=== PATIENT | female | born 1995 | race Caucasian/White ===

== ENCOUNTER 2017-04-21 15:14 | Emergency (ER) | payer SELFPAY ==
[2017-04-21 15:33] VITALS: BP 137/53
[2017-04-21] MEDS ORDERED: Acetaminophen TAB* 325 MG PO ONE (16:01)
--- NOTE | 2017-04-21 16:06 | UC ---
Throat Pain/Nasal Sal HPI - HPI Summary HPI Summary: pt presents with sudden onset of sore throat and fever X 1 day - History of Current Complaint Chief Complaint: UCRespiratory Stated Complaint: THROAT Time Seen by Provider: 04/21/17 15:53 Hx Obtained From: Patient Hx Last Menstrual Period: spotting last week ?: No Onset/Duration: Sudden Onset, Lasting Days - 1 Severity: Moderate Associated Signs & Symptoms: Positive: Dysphagia, Fever - Allergies/Home Medications Allergies/Adverse Reactions: Allergies Allergy/AdvReac Type Severity Reaction Status Date / Time unknown cephalosporin Allergy Unknown Uncoded 04/21/17 15:34 Reaction Details Home Medications: Home Medications Ibuprofen TAB* [Motrin TAB* 800 MG] 800 mg PO ONCE PRN 04/21/17 [History Confirmed 04/21/17] PMH/Surg Hx/FS Hx/Imm Hx Previously Healthy: Yes - Surgical History Surgical History: None - Family History Known Family History: Positive: Other - Mom has HX ovarian cysts - Social History Alcohol Use: None Substance Use Type: None Smoking Status (MU): Former Smoker Type: Cigarettes Amount Used/How Often: occasional use Household Exposure Type: Cigarettes Review of Systems Constitutional: Fever, Chills Skin: Negative Eyes: Negative ENT: Sore Throat Respiratory: Negative Cardiovascular: Negative Gastrointestinal: Negative Genitourinary: Negative Motor: Negative Neurovascular: Negative Musculoskeletal: Negative Neurological: Headache Psychological: Negative All Other Systems Reviewed And Are Negative: Yes Physical Exam Triage Information Reviewed: Yes Appearance: Ill-Appearing Vital Signs: Initial Vital Signs Temp 102.8 F 04/21/17 15:30 Pulse 122 04/21/17 15:30 Resp 18 04/21/17 15:30 BP 137/53 04/21/17 15:30 Vital Signs Reviewed: Yes Eye Exam: Normal ENT Exam: Other ENT: Positive: Tonsillar swelling, Tonsillar exudate Neck: Positive: Tenderness @ - submandibular Respiratory Exam: Normal Cardiovascular Exam: Normal Musculoskeletal Exam: Normal Neurological Exam: Normal Psychological Exam: Normal Skin Exam: Normal Throat Pain/Nasal Course/Dx - Differential Dx/Diagnosis Differential Diagnosis/HQI/PQRI: Tonsillitis Provider Diagnoses: tonsillitis Discharge - Discharge Plan Condition: Stable Disposition: HOME Prescriptions: Azithromycin [Azithromycin 500 MG TAB] 500 mg PO DAILY #5 tab Patient Education Materials: Tonsillitis (ED) Referrals: No Primary Care Phys,NOPCP [Primary Care Provider] - [facility] [place] [facility] REFERRAL [Outside]
== END 2017-04-21 16:17 | disposition home or self-care (01) ==
LOC: UCCORT 15:14
DX: J03.90 Acute tonsillitis, unspecified (principal); Z88.1 Allergy status to other antibiotic agents; Z87.891 Personal history of nicotine dependence
CPT/HCPCS: 99212; A9270-GY; G0463

== ENCOUNTER 2017-06-28 12:10 | Emergency (ER) | payer MEDICAID ==
[2017-06-28 12:23] VITALS: BP 124/67
--- NOTE | 2017-06-28 12:27 | UC ---
Throat Pain/Nasal Sal HPI - HPI Summary HPI Summary: Pt is here for strep testing because she works in a [employer] & it is going around; intermittent sore throat x1 day. Also c/o left whitfield pain since yesterday that is worse w/ standing & walking. Pt has been working more hours recently. She had strep about 4 mo ago and starting to feel like that,. no fever or cough [ End ] - History of Current Complaint Chief Complaint: UCGeneralIllness Stated Complaint: SORE THROAT, LOWER LEG PAIN Time Seen by Provider: 06/28/17 12:25 Hx Obtained From: Patient Hx Last Menstrual Period: has implanon ?: No - Allergies/Home Medications Allergies/Adverse Reactions: Allergies Allergy/AdvReac Type Severity Reaction Status Date / Time unknown cephalosporin Allergy Unknown Uncoded 06/28/17 12:18 Reaction Details PMH/Surg Hx/FS Hx/Imm Hx Previously Healthy: Yes - Surgical History Surgical History: None - Family History Known Family History: Positive: Other - Mom has HX ovarian cysts - Social History Occupation: Employed Full-time Lives: With Family Alcohol Use: None Substance Use Type: None Smoking Status (MU): Former Smoker Type: Cigarettes Amount Used/How Often: occasional use Household Exposure Type: Cigarettes Review of Systems Constitutional: Negative Skin: Negative Eyes: Negative ENT: Sore Throat Respiratory: Negative Cardiovascular: Negative Gastrointestinal: Negative Genitourinary: Negative Motor: Negative Neurovascular: Negative Musculoskeletal: Arthralgia Neurological: Negative Psychological: Negative All Other Systems Reviewed And Are Negative: Yes Physical Exam Triage Information Reviewed: Yes Appearance: Well-Appearing, No Pain Distress, Well-Nourished Vital Signs: Initial Vital Signs Temp 98.1 F 06/28/17 12:19 Pulse 89 06/28/17 12:19 Resp 16 06/28/17 12:19 BP 124/67 06/28/17 12:19 Pulse Ox 99 06/28/17 12:19 Vital Signs Reviewed: Yes Eye Exam: Normal ENT Exam: Normal ENT: Positive: Pharyngeal erythema, TMs normal. Negative: Tonsillar exudate Dental Exam: Normal Neck exam: Normal Neck: Positive: 1 Respiratory Exam: Normal Cardiovascular Exam: Normal Musculoskeletal Exam: Normal Musculoskeletal: Positive: Strength Intact, ROM Intact, Other: - bilateral anterior whitfield tenderness to palpation and with flexion. no homans. no erythema. no discharge or ecchymosis. no knee or ankle pain Neurological Exam: Normal Psychological Exam: Normal Skin Exam: Normal Throat Pain/Nasal Course/Dx - Course Course Of Treatment: Neg Strep - Differential Dx/Diagnosis Differential Diagnosis/HQI/PQRI: Pharyngitis, Tonsillitis, URI Provider Diagnoses: Whitfield splints / Pharyngitis Discharge - Discharge Plan Condition: Good Disposition: HOME Patient Education Materials: Pharyngitis (ED), Whitfield Splints (ED) Referrals: No Primary Care Phys,NOPCP [Primary Care Provider] - 3 Days
== END 2017-06-28 13:01 | disposition home or self-care (01) ==
LOC: UCCORT 12:10
DX: J02.9 Acute pharyngitis, unspecified (principal); S86.892A Other injury of other muscle(s) and tendon(s) at lower leg level, left leg, initial encounter; S86.891A Other injury of other muscle(s) and tendon(s) at lower leg level, right leg, initial encounter; X58.XXXA Exposure to other specified factors, initial encounter; Y93.9 Activity, unspecified; Y92.9 Unspecified place or not applicable; Z87.891 Personal history of nicotine dependence
CPT/HCPCS: 87651; 99211; G0463

== ENCOUNTER 2017-07-31 11:22 | Emergency (ER) | payer SELFPAY ==
[2017-07-31 11:41] VITALS: BP 112/63
--- NOTE | 2017-07-31 12:13 | RAD ---
Indication: Lateral RIGHT ankle pain with radiation into the top of the foot for one day without known injury. Comparison: No relevant prior exams available on the [facility] PACS for comparison. Technique: AP, lateral, and oblique views of the RIGHT ankle. AP and lateral views of the RIGHT foot. Report: Negative for fracture or malalignment at the ankle or foot. No significant arthropathic change evident. Unremarkable soft tissue contours. IMPRESSION: Negative radiographic exam of the RIGHT ankle and foot.
--- NOTE | 2017-07-31 12:13 | RAD ---
Indication: Lateral RIGHT ankle pain with radiation into the top of the foot for one day without known injury. Comparison: No relevant prior exams available on the [facility] PACS for comparison. Technique: AP, lateral, and oblique views of the RIGHT ankle. AP and lateral views of the RIGHT foot. Report: Negative for fracture or malalignment at the ankle or foot. No significant arthropathic change evident. Unremarkable soft tissue contours. IMPRESSION: Negative radiographic exam of the RIGHT ankle and foot.
--- NOTE | 2017-07-31 12:50 | UC ---
Lower Extremity/Ankle HPI - HPI Summary HPI Summary: LAST NIGHT WHILE WALKING BEGAN TO HAVE SPONTANEOUS RIGHT ANKLE AND RIGHT FOOT PAIN AND SWELLING. NO PREVIOUS INJURY. NO KNOWN TRAUMA. NO RECENT ANTIBIOTICS OR MEDICATION. - History of Current Complaint Chief Complaint: UCLowerExtremity Stated Complaint: RIGHT ANKLE INJURY Time Seen by Provider: 07/31/17 11:26 Hx Obtained From: Patient Hx Last Menstrual Period: "Honestly, I have no idea since I got my bar [Implanon ]." Onset/Duration: Sudden Onset, Lasting Days, Still Present Severity Initially: Severe Severity Currently: Moderate Aggravating Factor(s): Standing, Ambulation Alleviating Factor(s): Rest, Elevation Able to Bear Weight: Yes - Risk Factors Gout Risk Factors: Negative DVT Risk Factors: Negative Septic Arthritis Risk Factor: Negative - Allergies/Home Medications Allergies/Adverse Reactions: Allergies Allergy/AdvReac Type Severity Reaction Status Date / Time Ceftibuten [From Cedax] Allergy Hives Verified 07/31/17 11:36 PMH/Surg Hx/FS Hx/Imm Hx Previously Healthy: Yes - Surgical History Surgical History: None - Family History Known Family History: Positive: Other - Mom has HX ovarian cysts - Social History Occupation: Employed Full-time Lives: With Family Alcohol Use: Occasionally Substance Use Type: None Smoking Status (MU): Never Smoked Tobacco Type: Cigarettes Amount Used/How Often: occasional use Household Exposure Type: Cigarettes - Immunization History Most Recent Influenza Vaccination: Not the 2016/2017 Season Review of Systems Constitutional: Negative Skin: Negative Eyes: Negative ENT: Negative Respiratory: Negative Cardiovascular: Negative Gastrointestinal: Negative Genitourinary: Negative Motor: Negative Neurovascular: Negative Musculoskeletal: Arthralgia - RIGHT ANKLE/FOOT, Edema - RIGHT ANKLE, Myalgia - RIGHT ANKLE/FOOT Neurological: Negative Psychological: Negative Is Patient Immunocompromised?: No All Other Systems Reviewed And Are Negative: Yes Physical Exam Triage Information Reviewed: Yes Appearance: Well-Appearing, Well-Nourished, Pain Distress - MILD Vital Signs: Initial Vital Signs Temp 98.6 F 07/31/17 11:34 Pulse 76 07/31/17 11:34 Resp 16 07/31/17 11:34 BP 112/63 07/31/17 11:34 Pulse Ox 100 07/31/17 11:34 Vital Signs Reviewed: Yes Eye Exam: Normal ENT Exam: Normal ENT: Positive: Normal ENT inspection Dental Exam: Normal Neck exam: Normal Neck: Positive: Supple, Nontender Respiratory Exam: Normal Respiratory: Positive: Chest non-tender, Lungs clear, Normal breath sounds, No respiratory distress Cardiovascular Exam: Normal Cardiovascular: Positive: RRR, No Murmur, Pulses Normal Abdominal Exam: Normal Musculoskeletal Exam: Normal Musculoskeletal: Positive: Strength Intact, ROM Intact Neurological Exam: Normal Psychological Exam: Normal Psychological: Positive: Normal Response To Family Skin Exam: Normal Lower Extremity Course/Dx - Differential Dx/Diagnosis Differential Diagnosis/HQI/PQRI: Fracture (Closed), Sprain, Strain Provider Diagnoses: RIGHT ANKLE/FOOT SPRAIN Discharge - Discharge Plan Condition: Stable Disposition: HOME Patient Education Materials: Ankle Sprain (ED), Foot Sprain (ED) Forms: *Work Release Referrals: [facility] [place] [facility] [Outside] David Cook MD [Medical Doctor] - As Soon As Possible No Primary Care Phys,NOPCP [Primary Care Provider] -
== END 2017-07-31 12:52 | disposition home or self-care (01) ==
LOC: UCCORT 11:22
DX: S93.401A Sprain of unspecified ligament of right ankle, initial encounter (principal); F17.210 Nicotine dependence, cigarettes, uncomplicated; Y92.013 Bedroom of single-family (private) house as the place of occurrence of the external cause; X58.XXXA Exposure to other specified factors, initial encounter
CPT/HCPCS: 99213; G0463

== ENCOUNTER 2017-08-06 13:54 | Emergency (ER) | payer SELFPAY ==
[2017-08-06 14:10] VITALS: BP 118/72
--- NOTE | 2017-08-06 14:16 | UC ---
Lower Extremity/Ankle HPI - HPI Summary HPI Summary: right ankle injury 6 days ago , normal xrays doing better now with less pain requesting a note to return back to work - History of Current Complaint Chief Complaint: UCLowerExtremity Stated Complaint: RIGHT ANKLE RECHECK Time Seen by Provider: 08/06/17 14:05 Hx Obtained From: Patient Hx Last Menstrual Period: n/a Onset/Duration: Gradual Onset, Lasting Days - 6, Resolved Severity Initially: Moderate Severity Currently: Mild Able to Bear Weight: Yes - Allergies/Home Medications Allergies/Adverse Reactions: Allergies Allergy/AdvReac Type Severity Reaction Status Date / Time Ceftibuten [From Cedax] Allergy Hives Verified 08/06/17 14:10 Home Medications: Home Medications Ibuprofen TAB* [Advil TAB*] 400 mg PO Q8H PRN 08/06/17 [History Confirmed ] PMH/Surg Hx/FS Hx/Imm Hx Previously Healthy: Yes - Surgical History Surgical History: None - Family History Known Family History: Positive: Other - Mom has HX ovarian cysts - Social History Alcohol Use: Occasionally Substance Use Type: None Smoking Status (MU): Never Smoked Tobacco Type: Cigarettes Amount Used/How Often: occasional use Household Exposure Type: Cigarettes - Immunization History Most Recent Influenza Vaccination: Not the Season Review of Systems Constitutional: Negative Skin: Negative Eyes: Negative ENT: Negative Respiratory: Negative Cardiovascular: Negative Gastrointestinal: Negative Genitourinary: Negative Motor: Negative Neurovascular: Negative Musculoskeletal: Negative Neurological: Negative Psychological: Negative Is Patient Immunocompromised?: Yes All Other Systems Reviewed And Are Negative: Yes Physical Exam Triage Information Reviewed: Yes Appearance: Well-Appearing, No Pain Distress, Well-Nourished Vital Signs: Initial Vital Signs Temp 98.6 F 08/06/17 14:04 Pulse 77 08/06/17 14:04 Resp 18 08/06/17 14:04 BP 118/72 08/06/17 14:04 Vital Signs Reviewed: Yes Eyes: Positive: Conjunctiva Clear ENT: Positive: Normal ENT inspection, Hearing grossly normal, Pharynx normal Neck exam: Normal Respiratory: Positive: Chest non-tender, Lungs clear, Normal breath sounds Cardiovascular: Positive: RRR, No Murmur, Pulses Normal Musculoskeletal: Positive: Other: - normal right ankle/ foot exam Psychological Exam: Normal Skin Exam: Normal Lower Extremity Course/Dx - Differential Dx/Diagnosis Provider Diagnoses: right ankle sprain Discharge - Discharge Plan Condition: Stable Disposition: HOME Patient Education Materials: Ankle Sprain (ED) Forms: *Work Release Referrals: No Primary Care Phys,NOPCP [Primary Care Provider] - If Needed
== END 2017-08-06 14:36 | disposition home or self-care (01) ==
LOC: UCCORT 13:54
DX: S93.401D Sprain of unspecified ligament of right ankle, subsequent encounter (principal); X58.XXXD Exposure to other specified factors, subsequent encounter; Z88.8 Allergy status to other drugs, medicaments and biological substances; Z77.22 Contact with and (suspected) exposure to environmental tobacco smoke (acute) (chronic)
CPT/HCPCS: 99211; G0463

== ENCOUNTER 2017-10-01 11:14 | Emergency (ER) | payer OTHER ==
[2017-10-01 13:53] VITALS: BP 133/70
--- NOTE | 2017-10-01 13:56 | UC ---
Headache HPI - HPI Summary HPI Summary: 22 y/o female presents to the urgent care c/o headache on and off for the past 2 weeks. Pt reports PHILLIPS is temporal and b/l associated with mild neck pain. Pt also states she wear glasses and she feels she is restraining her vision lately. PHILLIPS is now 7/10, constant, throbbing. Pt has an appt wit her PCP tomorrow at 1540. Pt denies fever, SOB, chest pain, nasal congestion, N/V/D, dizziness, ear pain, abdominal pain. Pt is up to date with all her vaccines. She request a note for work - History Of Current Complaint Chief Complaint: UCHeadache Stated Complaint: MIGRAINE Time Seen by Provider: 10/01/17 13:54 Hx Obtained From: Patient Hx Last Menstrual Period: 03/2017 ?: No Onset/Duration: Gradual Onset, Lasting Weeks - 2 weeks, Still Present Onset Of Symptoms: Gradual, Still Present Initially Headache Was: Mild Currently Pain Is: Moderate Pain Intensity: 7 Pain Scale Used: 0-10 Numeric Timing: Constant Character: Sharp, Pressure, Migraine Location of Headache: Temporal Aggravating Factor(s): Bright Lights Allevating Factor(s): Nothing Associated Signs And Symptoms: Positive: Sinus Pressure, Neck Pain. Negative: Dizziness, Nausea, Fever - Risk Factors SAH Risk Factors: Negative Meningitis Risk Factors: Negative SDH Risk Factors: Negative Temporal Arteritis Risk Factors: Negative - Allergies/Home Medications Allergies/Adverse Reactions: Allergies Allergy/AdvReac Type Severity Reaction Status Date / Time Ceftibuten [From Cedax] Allergy Hives Verified 10/01/17 13:53 PMH/Surg Hx/FS Hx/Imm Hx Previously Healthy: Yes Respiratory History: Asthma - Surgical History Surgical History: None - Family History Known Family History: Positive: Hypertension, Diabetes, Other - Mom has HX ovarian cysts Family History: Thyroid cancer, Dyslipidemia - Social History Occupation: Employed Full-time Lives: With Family Alcohol Use: Occasionally Substance Use Type: None Smoking Status (MU): Never Smoked Tobacco Type: Cigarettes Amount Used/How Often: occasional use Household Exposure Type: Cigarettes - Immunization History Most Recent Influenza Vaccination: Not the 2016/2017 Season Review of Systems Constitutional: Negative Skin: Negative Eyes: Photophobia ENT: Sinus Pain/Tenderness Respiratory: Negative Cardiovascular: Negative Gastrointestinal: Negative Genitourinary: Negative Motor: Negative Neurovascular: Negative Musculoskeletal: Other: - Neck pain Neurological: Headache Psychological: Negative Is Patient Immunocompromised?: No All Other Systems Reviewed And Are Negative: Yes Physical Exam Triage Information Reviewed: Yes Vital Signs: Initial Vital Signs Temp 98.5 F 10/01/17 13:43 Pulse 86 10/01/17 13:43 Resp 18 10/01/17 13:43 BP 133/70 10/01/17 13:43 Pulse Ox 97 10/01/17 13:43 - Additional Comments Vital Signs Reviewed: Yes General: well developed well nourished female, sitting in the examining table w/ o any acute distress. Eyes: Positive: Conjunctiva Clear - -Eyes: sclera and conjunctiva clear, corneas grossly clear, PEERLA, EOMI, no nystagmus, no ptosis,no photophobia, normal fundoscopic exam, normal visual ulloa,, Other: - -Head:scalp atraumatic , NT, no trigger points ENT: Positive: Normal ENT inspection, Hearing grossly normal, Pharynx normal, TMs normal - B/L external ear canals clear, Other: - No TMJ tenderness. Negative : Nasal congestion, Nasal drainage, Tonsillar swelling, Tonsillar exudate Dental Exam: Normal Neck: Positive: Supple, Nontender, No Lymphadenopathy. No meningeal signs, no Kernig's or brudzinskis signs. Respiratory: Positive: Chest non-tender, Lungs clear, Normal breath sounds, No respiratory distress Cardiovascular: Positive: RRR, No Murmur, Pulses Normal, Brisk Capillary Refill Abdomen Description: Positive: Nontender, No Organomegaly, Soft. Negative: CVA Tenderness (R), CVA Tenderness (L) Bowel Sounds: Positive: Present Musculoskeletal: Positive: Strength Intact, ROM Intact, No Edema Neurological: Positive: Alert - A&OX3, CNII-XII WNL, speech, memory and expression WNL,, Muscle Tone Normal - Muscle strength 5/5 in both upper and lower extremities. Normal gait, negative Romberg test and good coordination finger to nose, heel to whitfield WNL, sensation intact. Reflexes WNL Psychological Exam: Normal Skin: Positive: warm and dry , no rashes or petechia observed Headache Course/Dx - Course Course Of Treatment: 22 y/o female presents to the urgent care c/o headache on and off for the past 2 weeks. Pt reports PHILLIPS is temporal and b/l associated with mild neck pain. Pt also states she wear glasses and she feels she is restraining her vision lately. PHILLIPS is now 7/10, constant, throbbing. Pt has an appt wit her PCP tomorrow at 1540. Pt denies fever, SOB, chest pain, nasal congestion, N/V/D, dizziness, ear pain, abdominal pain. Pt is up to date with all her vaccines. Hx obtained. PE WNL. Pt givne ibuprofen 800mg PO at the clinic. Pt tolerated well medication and PHILLIPS decrease. Pt strongly advised to keep her schedule appt with her PCP tomorrow for blood work and furthe managment. Also to f/u with her opthalmologist to see if she needs a change in her eye glasses prescription since she feels she is straining her vision lately. Pt Rx Ibuprofen PO and benadryl PO to alleviate symptoms. Pt understood and agreed with plan of care. Left the clinic ambulating and A&OX3 - Differential Dx/Diagnosis Differential Diagnosis/HQI/PQRI: Meningitis, Migraine, Sinus Headache, Tension Headache, Viral Syndrome Provider Diagnoses: 1- Headache Discharge - Discharge Plan Condition: Stable Disposition: HOME Prescriptions: diPHENhydraMINE PO* [Benadryl PO 25 MG TAB*] 25 mg PO TID PRN #15 tab PRN Reason: Headache Ibuprofen TAB* [Motrin TAB* 800 MG] 800 mg PO Q6H #30 tab Patient Education Materials: Acute Headache (ED) Forms: *Work Release Referrals: [facility] [place] [facility] [Outside] No Primary Care Phys,NOPCP [Primary Care Provider] - Additional Instructions: 1-Take ibuprofen PO after meals to alleviate Headache. Please take Bendaryl Po also to alleviate headache. 2- Please f/u with your Opthalmologist for further evaluation and treatment 3-Please keep your appt w/ your PCP tomorrow for further evaluation and treatment. 3-If you develops severe headache with dizziness, visual disturbances or any neurological deficit go immediately to the ER for further treatment.
[2017-10-01] MEDS ORDERED: Ibuprofen TAB* 400 MG PO ONE (14:09)
== END 2017-10-01 14:39 | disposition home or self-care (01) ==
LOC: UCCORT 11:14
DX: R51 Headache (principal); J45.909 Unspecified asthma, uncomplicated; Z88.1 Allergy status to other antibiotic agents; Z72.0 Tobacco use
CPT/HCPCS: 99212; A9270-GY; G0463

== ENCOUNTER 2017-10-17 10:06 | Emergency (ER) | payer OTHER ==
[2017-10-17 10:14] VITALS: BP 122/64
--- NOTE | 2017-10-17 10:27 | UC ---
Throat Pain/Nasal Sal HPI - HPI Summary HPI Summary: Congestion and sore throat along with cough for about two days. The sore throat came last. She has co workers with strep throat. Her work wanted her tested today. She denies fever. Nothing makes it better or worse. - History of Current Complaint Chief Complaint: UCRespiratory Stated Complaint: CONGESTION Time Seen by Provider: 10/17/17 10:20 Hx Obtained From: Patient Hx Last Menstrual Period: 03/2017 Onset/Duration: Gradual Onset, Lasting Days Severity: Moderate Cough: Nonproductive Associated Signs & Symptoms: Positive: Nasal Discharge. Negative: Dysphagia, Wheezing, Hoarseness, Sinus Discomfort, Fever, Vomiting, Rash - Epiglottits Risk Factors Epiglottis Risk Factors: Negative - Allergies/Home Medications Allergies/Adverse Reactions: Allergies Allergy/AdvReac Type Severity Reaction Status Date / Time Ceftibuten [From Cedax] Allergy Hives Verified 10/17/17 10:09 PMH/Surg Hx/FS Hx/Imm Hx Previously Healthy: Yes - Surgical History Surgical History: None - Family History Known Family History: Positive: Hypertension, Diabetes, Other - Mom has HX ovarian cysts Family History: Thyroid cancer, Dyslipidemia - Social History Occupation: Employed Full-time Alcohol Use: None Substance Use Type: None Smoking Status (MU): Never Smoked Tobacco Type: Cigarettes Amount Used/How Often: occasional use Household Exposure Type: Cigarettes - Immunization History Most Recent Influenza Vaccination: 2017 Review of Systems ENT: Sore Throat, Sinus Congestion Respiratory: Cough All Other Systems Reviewed And Are Negative: Yes Physical Exam Triage Information Reviewed: Yes Appearance: Well-Appearing, No Pain Distress, Well-Nourished Vital Signs: Initial Vital Signs Temp 96.9 F 10/17/17 10:10 Pulse 72 10/17/17 10:10 Resp 16 10/17/17 10:10 BP 122/64 10/17/17 10:10 Pulse Ox 99 10/17/17 10:10 Vital Signs Reviewed: Yes Eyes: Positive: Conjunctiva Clear ENT: Positive: Pharyngeal erythema, Nasal congestion, TMs normal, Uvula midline. Negative: Nasal drainage, TM bulging, TM dull, TM red, Tonsillar swelling, Tonsillar exudate, Trismus, Muffled voice, Hoarse voice, Sinus tenderness Neck: Positive: Supple, Nontender, No Lymphadenopathy. Negative: Nuchal Rigidity Respiratory: Positive: Lungs clear, Normal breath sounds, No respiratory distress, No accessory muscle use. Negative: Respiratory distress, Decreased breath sounds, Accessory muscle use, Crackles, Rhonchi, Stridor, Wheezing Cardiovascular: Positive: RRR, No Murmur, Pulses Normal, Brisk Capillary Refill Abdomen Description: Positive: Nontender, No Organomegaly, Soft. Negative: Distended, Guarding Musculoskeletal: Positive: Strength Intact, ROM Intact, No Edema Neurological: Positive: Alert, Muscle Tone Normal. Negative: Fatigued Skin Exam: Normal Skin: Negative: rashes Throat Pain/Nasal Course/Dx - Differential Dx/Diagnosis Provider Diagnoses: uri. Sore throat. Discharge - Discharge Plan Condition: Good Disposition: HOME Patient Education Materials: Upper Respiratory Infection (ED) Referrals: No Primary Care Phys,NOPCP [Medical Doctor] -
== END 2017-10-17 11:10 | disposition home or self-care (01) ==
LOC: UCCORT 10:06
DX: J06.9 Acute upper respiratory infection, unspecified (principal); J02.9 Acute pharyngitis, unspecified; Z77.22 Contact with and (suspected) exposure to environmental tobacco smoke (acute) (chronic)
CPT/HCPCS: 87651; 99211; G0463

== ENCOUNTER 2018-03-25 14:06 | Emergency (ER) | payer BC, OTHER ==
[2018-03-25 14:23] VITALS: BP 117/74
--- NOTE | 2018-03-25 14:44 | ED ---
Lower Extremity - HPI Summary HPI Summary: 23 yr old female with the complaint of left hip pain. Onset four days ago. She complains of pain in the left hip that radiates down the lateral left hip, into the left knee and down the leg into her foot. She denies trauma or injuries. She denies back pain. She denies fever, chills. She states her pain is 7/10 and worse with bearing weight. She does work at [employer] and at times restrains people. - History of Current Complaint Chief Complaint: UCBackPain Stated Complaint: LEFT HIP PAIN Time Seen by Provider: 03/25/18 14:26 Hx Last Menstrual Period: NEXPLANON Pain Intensity: 6 - Allergies/Home Medications Allergies/Adverse Reactions: Allergies Allergy/AdvReac Type Severity Reaction Status Date / Time ceftibuten Allergy Hives Verified 03/25/18 14:24 latex Allergy Rash Verified 03/25/18 14:24 Home Medications: Home Medications Ibuprofen 800 mg PO Q8HR 03/25/18 [History Confirmed 03/25/18] PMH/Surg Hx/FS Hx/Imm Hx Respiratory History: Reports: Hx Asthma Infectious Disease History: No Infectious Disease History: Denies: Traveled Outside the [place] in Last 30 Days - Family History Known Family History: Positive: Hypertension, Diabetes, Other - Mom has HX ovarian cysts Family History: Thyroid cancer, Dyslipidemia - Social History Occupation: Employed Full-time Alcohol Use: Occasionally Substance Use Type: Reports: None Smoking Status (MU): Never Smoked Tobacco Type: Cigarettes Amount Used/How Often: occasional use Review of Systems Constitutional: Negative Positive: Other - hip pain All Other Systems Reviewed And Are Negative: Yes Physical Exam Triage Information Reviewed: Yes Vital Signs On Initial Exam: Initial Vitals Temp Pulse Resp BP Pulse Ox 97.4 F 63 16 117/74 100 03/25/18 14:20 03/25/18 14:20 03/25/18 14:20 03/25/18 14:20 03/25/18 14:20 Vital Signs Reviewed: Yes Appearance: Positive: Well-Appearing, No Pain Distress Skin: Positive: Warm, Skin Color Reflects Adequate Perfusion Head/Face: Positive: Normal Head/Face Inspection Eyes: Positive: EOMI ENT: Positive: Normal ENT inspection Neck: Positive: Nontender Respiratory/Lung Sounds: Positive: Other - normal effort Musculoskeletal: Positive: Other - left hip without redness and swelling. She is tender over the left hip and over the left SI area. No deformity, no swelling. Neurological: Positive: Sensory/Motor Intact, Alert, Oriented to Person Place, Time, CN Intact II-III Psychiatric: Positive: Normal AVPU Assessment: Alert - Talia Coma Scale Best Eye Response: 4 - Spontaneous Best Motor Response: 6 - Obeys Commands Best Verbal Response: 5 - Oriented Coma Scale Total: 15 Diagnostics - Vital Signs Vital Signs Temp Pulse Resp BP Pulse Ox 03/25/18 14:20 97.4 F 63 16 117/74 100 - Laboratory Lab Statement: Any lab studies that have been ordered have been reviewed, and results considered in the medical decision making process. - Radiology left hip, pelvis Xray Interpretation: No Acute Changes Radiology Interpretation Completed By: Radiologist Lower Extremity Course/Dx - Course Course Of Treatment: 23 yr old female with left hip pain, leg pain that sounds sciatic like, radicular. Will Rx with motrin and flexeril. She should follow with PMD and for any worsening symptoms to ER. - Diagnoses Provider Diagnoses: Sciatica of left side, Radicular pain of lower extremity Discharge - Sign-Out/Discharge Documenting (check all that apply): Discharge/Admit/Transfer - Discharge Plan Condition: Good Disposition: HOME Prescriptions: Cyclobenzaprine TAB* [Flexeril 10 MG TAB*] 10 mg PO BID PRN #14 tab PRN Reason: pain Ibuprofen TAB* [Motrin TAB* 600 MG] 600 mg PO Q8H PRN #14 tab PRN Reason: Pain Patient Education Materials: Lumbar Radiculopathy (ED), Sciatica (ED), Hip Pain (ED) Forms: *Work Release Referrals: Non Staff,Doctor [Primary Care Provider] - David Cook MD [Medical Doctor] - 2 Days - Billing Disposition and Condition Condition: GOOD Disposition: HOME
--- NOTE | 2018-03-25 15:24 | RAD ---
INDICATION: Left hip pain COMPARISON: None TECHNIQUE: An AP view of the pelvis and AP views of the hip in neutral and abducted position were obtained FINDINGS: Bones: There are no acute bony findings. Joint spaces: The hips articulate normally. The joint spaces are preserved. SI joints/symphysis: The SI joints and symphysis are intact. Other: None IMPRESSION: NEGATIVE EXAMINATION
== END 2018-03-25 15:46 | disposition home or self-care (01) ==
LOC: UCCORT 14:06
DX: M54.32 Sciatica, left side (principal); M54.10 Radiculopathy, site unspecified; Z88.1 Allergy status to other antibiotic agents; Z91.040 Latex allergy status
CPT/HCPCS: 84702; 99212; G0463

== ENCOUNTER 2018-03-29 15:30 | Emergency (ER) | payer BC ==
[2018-03-29 15:44] VITALS: BP 127/60
--- NOTE | 2018-03-29 16:13 | UC ---
Hip/Pelvis Pain - HPI Summary HPI Summary: 23 yo female presents asking for a note to return to work. She tells me that she was seen here 6 days ago for left hip pain and given and a note for work. Today she tells me that her work will not let her return without a note saying it is ok for her to return. Her hip pain has significantly improved and she feels ready to return. 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 - History Of Current Complaint Chief Complaint: UCLowerExtremity Stated Complaint: RECHECK LFT HIP Hx Obtained From: Patient Hx Last Menstrual Period: 2016 Severity Currently: Mild Pain Intensity: 2 Pain Scale Used: 0-10 Numeric - Allergies/Home Medications Allergies/Adverse Reactions: Allergies Allergy/AdvReac Type Severity Reaction Status Date / Time ceftibuten Allergy Hives Verified 03/29/18 15:45 latex Allergy Rash Verified 03/29/18 15:45 Home Medications: Home Medications Etonogestrel [Nexplanon] 68 mg IMPLANT DAILY 03/29/18 [History Confirmed ] PMH/Surg Hx/FS Hx/Imm Hx - Additional Past Medical History Additional PMH: None Previously Healthy: Yes - Surgical History Surgical History: None - Family History Known Family History: Positive: Hypertension, Diabetes, Other - Mom has HX ovarian cysts Family History: Thyroid cancer, Dyslipidemia - Social History Occupation: Employed Full-time Lives: With Family Alcohol Use: Occasionally Substance Use Type: None Smoking Status (MU): Never Smoked Tobacco Type: Cigarettes Amount Used/How Often: occasional use Household Exposure Type: Cigarettes - Immunization History Most Recent Influenza Vaccination: 2017 Review of Systems Constitutional: Negative Skin: Negative Respiratory: Negative Cardiovascular: Negative Neurovascular: Negative Musculoskeletal: Other: - Left hip pain Neurological: Negative Psychological: Negative All Other Systems Reviewed And Are Negative: Yes Physical Exam - Summary Physical Exam Summary: GENERAL: NAD. WDWN. No pain distress. SKIN: No rashes, sores, lesions, or open wounds. NECK: Supple. FROM. Nontender. No lymphadenopathy. CHEST: CTAB. No r/r/w. No accessory muscle use. Breathing comfortably and in no distress. CV: RRR. Without m/r/g. Pulses intact. MSK: Mild TTP overlying left trochanter. Pain with flexion of hip. Negative SLR b/l. Negative SON b/l. Strength 5/5 B/L LEs including dorsiflexion and plantar flexion. FROM B/L LEs. No edema. NEURO: Alert. CN II-XII grossly intact. Sensations intact B/L LEs L3-S1. PSYCH: Age appropriate behavior. Triage Information Reviewed: Yes Vital Signs: Initial Vital Signs Temp 98.4 F 03/29/18 15:37 Pulse 82 03/29/18 15:37 Resp 20 03/29/18 15:37 BP 127/60 03/29/18 15:37 Pulse Ox 100 03/29/18 15:37 Hip Injury Course/Dx - Course Course Of Treatment: Left hip pain - suspect bursitis vs muscle strain. She has a follow up with ortho next week. Clear to return to work as her pain has significantly improved and she feels ready to return. - Differential Dx/Diagnosis Provider Diagnoses: LEft hip pain Discharge - Sign-Out/Discharge Documenting (check all that apply): Discharge/Admit/Transfer - Discharge Plan Condition: Stable Disposition: HOME Patient Education Materials: Hip Bursitis (ED) Forms: *Work Release Referrals: Non Staff,Doctor [Primary Care Provider] - Additional Instructions: If you develop a fever, shortness of breath, chest pain, new or worsening symptoms - please call your PCP or go to the ED. - Billing Disposition and Condition Condition: STABLE Disposition: HOME
== END 2018-03-29 16:27 | disposition home or self-care (01) ==
LOC: UCCORT 15:30
DX: Z51.89 Encounter for other specified aftercare (principal); M25.552 Pain in left hip
CPT/HCPCS: 99211; G0463

== ENCOUNTER 2018-05-21 17:47 | Emergency (ER) | payer BC, OTHER ==
[2018-05-21 18:18] VITALS: BP 129/63
--- NOTE | 2018-05-21 18:58 | UC ---
Hand/Wrist HPI - HPI Summary HPI Summary: PATIENT WORKS AT [employer]. LEFT THIRD FINGER WAS CRUSHED IN A DOOR. HAS AVULSED HER NAIL AND HAS A SUPERFICIAL LACERATION TO THE FINGER PAD. UNSURE OF DATE OF LAST TETANUS. - History Of Current Complaint Chief Complaint: UCGeneralIllness Stated Complaint: WC LEFT MIDDLE FINGER INJURY Time Seen by Provider: 05/21/18 18:43 Hx Obtained From: Patient Hx Last Menstrual Period: unknown, nexplanon Onset/Duration: Sudden Onset, Lasting Hours, Still Present Severity Initially: Moderate Severity Currently: Moderate Pain Intensity: 0 Pain Scale Used: 0-10 Numeric Character Of Pain: Sharp Alleviating Factor(s): Nothing Associated Signs And Symptoms: Positive: Swelling, Numbness/Tingling Related History: Dominant Hand Right - Allergies/Home Medications Allergies/Adverse Reactions: Allergies Allergy/AdvReac Type Severity Reaction Status Date / Time ceftibuten Allergy Hives Verified 05/21/18 18:15 latex Allergy Rash Verified 05/21/18 18:15 Home Medications: Home Medications Ibuprofen TAB* [Motrin TAB* 600 MG] 800 mg PO Q8H PRN 05/21/18 [History Confirmed 05/21/18] PMH/Surg Hx/FS Hx/Imm Hx Respiratory History: Asthma Neurological History: Migraine - Surgical History Surgical History: None - Family History Known Family History: Positive: Hypertension, Diabetes, Other - Mom has HX ovarian cysts Family History: Thyroid cancer, Dyslipidemia - Social History Alcohol Use: Occasionally Substance Use Type: None Smoking Status (MU): Never Smoked Tobacco Type: Cigarettes Amount Used/How Often: occasional use Household Exposure Type: Cigarettes - Immunization History Most Recent Influenza Vaccination: 2017 Review of Systems Constitutional: Negative Skin: Other - LACERATION Respiratory: Negative Cardiovascular: Negative Gastrointestinal: Negative Musculoskeletal: Edema All Other Systems Reviewed And Are Negative: Yes Physical Exam Triage Information Reviewed: Yes Appearance: Well-Appearing, No Pain Distress, Well-Nourished Vital Signs: Initial Vital Signs Temp 98 F 05/21/18 18:11 Pulse 74 05/21/18 18:11 Resp 18 05/21/18 18:11 BP 129/63 05/21/18 18:11 Pulse Ox 99 05/21/18 18:11 Vital Signs Reviewed: Yes Eyes: Positive: Conjunctiva Clear ENT: Positive: Hearing grossly normal Neck: Positive: Supple Respiratory: Positive: No respiratory distress, No accessory muscle use Cardiovascular: Positive: Pulses Normal Abdomen Description: Positive: Soft Musculoskeletal: Positive: ROM Intact, Edema @ - LEFT 3RD FINGER DISTALLY Neurological: Positive: Alert Psychological: Positive: Age Appropriate Behavior Skin: Positive: Other - LEFT THIRD FINGERNAIL PARTIALLY AVULSED. SUPERFICIAL FLAP LACERATION TO FINGER PAD Procedures - Laceration/Wound Repair 1 Location: Other Description: Irregular Length, Depth and Shape: 1CM IRREGULAR LACERATION. 1MM DEPTH Laceration/Wound Explored: clean Closure: Skin Adhesive, SteriStrips Sterile Dressing Applied?: Yes Diagnostics - Radiology LEFT 3RD FINGER XRAY Xray Interpretation: No Acute Changes Radiology Interpretation Completed By: Radiologist Hand/Wrist Course/Dx - Course Course Of Treatment: PATIENT REPORTS SHE DEVELOPS AN ITCHY, RED RASH WITH LATEX ADHESIVE BANDAGES BUT HAS NO REACTION TO LATEX GLOVES. ADVISED THAT TDAP BOOSTER COMES IN A SYRINGE THAT HAS SOME LATEX COMPONENTS. PATIENT OPTS TO RECEIVE THE BOOSTER TODAY. ADVISED TO CALL 911 IF SHE DEVELOPS ANY RESPIRATORY COMPROMISE, FEVER, SWELLING OR ANY OTHER CONCERNING SYMPTOMS. - Differential Dx/Diagnosis Provider Diagnoses: LEFT 3RD FINGER CRUSH INJURY - PARTIAL NAIL AVULSION, LACERATION REPAIR Discharge - Sign-Out/Discharge Documenting (check all that apply): Discharge/Admit/Transfer - Discharge Plan Condition: Stable Disposition: HOME Patient Education Materials: Finger Laceration (ED), Nail Avulsion (ED) Forms: *Work Release Referrals: No Primary Care Phys,NOPCP [Primary Care Provider] - Additional Instructions: X-RAY TODAY UNREMARKABLE FOR FRACTURE OR DISLOCATION. SEEK FOLLOW-UP IF YOU DEVELOP SPREADING REDNESS OF THE SKIN, PURULENT DRAINAGE, FEVER, INCREASED PAIN OR ANY OTHER CONCERNING SYMPTOMS. TAKE THE TUBE GAUZE OFF TOMORROW NIGHT AND THEN USE THE FINGER SPLINT FOR PROTECTION. THE STERISTRIPS WILL FALL OFF ON THEIR OWN IN THE NEXT 1-2 WEEKS. DO NOT PUT ANY OINTMENT ON TOP OF THEM. DO NOT SUBMERGE IN WATER FOR PROLONGED PERIOD OF TIME. OKAY FOR BRIEF SHOWER AFTER 24 HOURS AND THEN BE SURE TO ALLOW TO DRY COMPLETELY. YOUR NAIL WILL LIKELY FALL OFF. LONG IT IS IN PLACE IT WILL ACT A NATURAL BAND-AID AND SHOULD REGROW. TETANUS IMMUNIZATION GIVEN (TDAP): You have been given an immunization against tetanus. Please record this in your records. In general, a booster is needed only once every 10 years. The tetanus shot protects against tetanus or "lockjaw," which is a complication of certain wound infections (the tetanus shot cannot protect against the actual infection). The immunization site may become warm and red due to local reaction. If this occurs, apply warm compresses and take aspirin or ibuprofen to reduce inflammation and discomfort. Return for evaluation if the reaction becomes severe. CALL THE NUMBER BELOW FOR ASSISTANCE IN ESTABLISHING WITH A PCP An additional resource available to assist in finding the appropriate physician for your health care needs is the [facility] ([facility]). You may contact them by calling [phone]. - Billing Disposition and Condition Condition: STABLE Disposition: Home
[2018-05-21] MEDS ORDERED: Tetan/Diph/Pertus SYR(Tdap)* 0.5 ML SYR(BOOSTRIX) use SYR IM ONE (19:00)
--- NOTE | 2018-05-21 19:34 | RAD ---
Indication: Left third finger injury. 3 views of left third finger demonstrates no fracture. No other bone or joint abnormality is noted. IMPRESSION: No fracture of left third finger is noted.
== END 2018-05-21 20:05 | disposition home or self-care (01) ==
LOC: UCCORT 17:47
DX: S61.313A Laceration without foreign body of left middle finger with damage to nail, initial encounter (principal); W23.0XXA Caught, crushed, jammed, or pinched between moving objects, initial encounter; Y93.9 Activity, unspecified; Y92.9 Unspecified place or not applicable
CPT/HCPCS: 12001; 73140; 90471; 90715; 99211; G0463

== ENCOUNTER 2018-10-17 20:42 | Emergency (ER) | payer OTHER ==
[2018-10-17 21:09] VITALS: BP 147/68
--- NOTE | 2018-10-17 21:59 | UC ---
Shoulder Pain HPI - HPI Summary HPI Summary: Pt returns to clinic for reevaluation of left shoulder injury. Pt is requesting a return to work note. - History of Current Complaint Chief Complaint: UCUpperExtremity Stated Complaint: LT SHOULDER RECHECK Time Seen by Provider: 10/17/18 21:38 Hx Obtained From: Patient Hx Last Menstrual Period: unknown, nexplanon ?: No Onset/Duration: Gradual Onset, Lasting Days, Resolved Timing: Constant Severity Initially: Mild Severity Currently: None Pain Intensity: 0 Pain Scale Used: 0-10 Numeric Associated Signs And Symptoms: Positive: Negative Related History: Dominant Hand Right - Risk Factors Non-Orthopedic Risk Factor: Negative DVT Risk Factors: Negative Septic Arthritis Risk Factor: Negative - Allergies/Home Medications Allergies/Adverse Reactions: Allergies Allergy/AdvReac Type Severity Reaction Status Date / Time ceftibuten Allergy Hives Verified 10/17/18 21:07 latex Allergy Rash Verified 10/17/18 21:07 PMH/Surg Hx/FS Hx/Imm Hx Previously Healthy: Yes - Surgical History Surgical History: None - Family History Known Family History: Positive: Hypertension, Diabetes, Other - Mom has HX ovarian cysts Family History: Thyroid cancer, Dyslipidemia - Social History Occupation: Employed Full-time Lives: With Family Alcohol Use: Occasionally Substance Use Type: None Smoking Status (MU): Never Smoked Tobacco Type: Cigarettes Amount Used/How Often: occasional use Have You Smoked in the Last Year: No Household Exposure Type: Cigarettes - Immunization History Most Recent Influenza Vaccination: 2016 Review of Systems All Other Systems Reviewed And Are Negative: Yes Constitutional: Positive: Negative Skin: Positive: Negative Eyes: Positive: Negative ENT: Positive: Negative Respiratory: Positive: Negative Cardiovascular: Positive: Negative Gastrointestinal: Positive: Negative Genitourinary: Positive: Negative Motor: Positive: Negative Neurovascular: Positive: Negative Musculoskeletal: Positive: Negative Neurological: Positive: Negative Psychological: Positive: Negative Is Patient Immunocompromised?: No Physical Exam Triage Information Reviewed: Yes Appearance: Well-Appearing Vital Signs: Initial Vital Signs Temp 97.4 F 10/17/18 21:04 Pulse 87 10/17/18 21:04 Resp 16 10/17/18 21:04 BP 147/68 10/17/18 21:04 Pulse Ox 99 10/17/18 21:04 Vital Signs Reviewed: Yes Eye Exam: Normal ENT Exam: Normal Dental Exam: Normal Neck exam: Normal Respiratory: Positive: No respiratory distress Musculoskeletal Exam: Normal Neurological Exam: Normal Psychological Exam: Normal Skin Exam: Normal Shoulder Course/Dx - Differential Dx/Diagnosis Differential Diagnosis/HQI/PQRI: Sprain, Strain Provider Diagnosis: Normal shoulder exam Discharge - Sign-Out/Discharge Documenting (check all that apply): Patient Departure All imaging exams completed and their final reports reviewed: No Studies - Discharge Plan Condition: Stable Disposition: HOME Patient Education Materials: Arthralgia (ED) Forms: *Gen. Provider Communication Referrals: Care [facility] [Outside] - If Needed No Primary Care Phys,NOPCP [Primary Care Provider] - - Billing Disposition and Condition Condition: STABLE Disposition: Home
== END 2018-10-17 21:48 | disposition home or self-care (01) ==
LOC: UCCORT 20:42
DX: Z09 Encounter for follow-up examination after completed treatment for conditions other than malignant neoplasm (principal); S49.92XD Unspecified injury of left shoulder and upper arm, subsequent encounter; X58.XXXD Exposure to other specified factors, subsequent encounter; Z88.1 Allergy status to other antibiotic agents
CPT/HCPCS: 99211; G0463

== ENCOUNTER 2018-11-19 12:03 | Emergency (ER) | payer BC, OTHER ==
[2018-11-19 12:14] VITALS: BP 137/66
--- NOTE | 2018-11-19 12:37 | UC ---
Respiratory Complaint HPI - HPI Summary HPI Summary: 23-year-old female presents with 2-3 week history of a productive cough for yellow sputum. States cough has progressively worsened over the last 3 days. Associated with some mild nasal congestion, sore throat, and pleuritic type chest pain with cough. Denies fever, chills, ear pain, dysphagia, shortness of breath, wheezing, abdominal pain, nausea, vomiting, or diarrhea. - History of Current Complaint Chief Complaint: UCRespiratory Stated Complaint: CHEST PAIN W/COLD SYMPTOMS Time Seen by Provider: 11/19/18 12:15 Hx Obtained From: Patient Hx Last Menstrual Period: NEXPLANON Pain Intensity: 0 - Allergies/Home Medications Allergies/Adverse Reactions: Allergies Allergy/AdvReac Type Severity Reaction Status Date / Time ceftibuten Allergy Hives Verified 11/19/18 12:15 latex Allergy Rash Verified 11/19/18 12:15 PMH/Surg Hx/FS Hx/Imm Hx Previously Healthy: Yes - No significant PMH - Surgical History Surgical History: None - Family History Known Family History: Positive: Hypertension, Diabetes, Other - Mom has HX ovarian cysts Family History: Thyroid cancer, Dyslipidemia - Social History Occupation: Employed Full-time Lives: With Family Alcohol Use: Occasionally Substance Use Type: None Smoking Status (MU): Former Smoker Type: Cigarettes Amount Used/How Often: occasional use Have You Smoked in the Last Year: No When Did the Patient Quit Smoking/Using Tobacco: 2016 Household Exposure Type: Cigarettes - Immunization History Most Recent Influenza Vaccination: 2017 Review of Systems All Other Systems Reviewed And Are Negative: Yes Constitutional: Positive: Chills. Negative: Fever Skin: Negative: Rash Eyes: Negative: Drainage, Eye Redness ENT: Positive: Sore Throat, Nasal Discharge. Negative: Ear Ache, Sinus Congestion, Sinus Pain/Tenderness Respiratory: Positive: Cough. Negative: Shortness Of Breath Cardiovascular: Positive: Chest Pain. Negative: Palpitations Gastrointestinal: Negative: Abdominal Pain, Vomiting, Diarrhea, Nausea Genitourinary: Positive: Negative Musculoskeletal: Positive: Negative Is Patient Immunocompromised?: No Physical Exam - Summary Physical Exam Summary: GENERAL APPEARANCE: Well developed, well nourished, alert and cooperative, and appears to be in no acute distress. EYES: Conjunctiva clear. No drainage. Vision is grossly intact. EARS: External auditory canals and tympanic membranes clear, hearing grossly intact. NOSE: Mild nasal congestion with mucosal erythema and edema without nasal discharge. THROAT: Mild pharyngeal erythema without tonsilar inflammation, swelling, exudate, or lesions. Oral cavity normal. Teeth and gingiva in good general condition. NECK: Neck supple, non-tender without lymphadenopathy. CARDIAC: Normal S1 and S2. No S3, S4 or murmurs. Rhythm is regular. There is no peripheral edema, cyanosis or pallor. Extremities are warm and well perfused. Capillary refill is less than 2 seconds. LUNGS: Clear to auscultation and percussion without rales, rhonchi, wheezing or diminished breath sounds. Occasional dry, non-productive cough. ABDOMEN: Positive bowel sounds. Soft, nondistended, nontender. No guarding or rebound. No masses or hepatosplenomegally. MUSKULOSKELETAL: ROM intact to all extremities. No joint erythema or tenderness. Normal muscular development. Normal gait. SKIN: Skin normal color, texture and turgor with no lesions or eruptions. Triage Information Reviewed: Yes Vital Signs: Initial Vital Signs Temp 98 F 11/19/18 12:11 Pulse 98 11/19/18 12:11 Resp 16 11/19/18 12:11 BP 137/66 11/19/18 12:11 Pulse Ox 99 11/19/18 12:11 UC Diagnostic Evaluation - Laboratory O2 Sat by Pulse Oximetry: 99 Respiratory Course/Dx - Course Course Of Treatment: 23-year-old female presents with 2-3 week history of a productive cough for yellow sputum. States cough has progressively worsened over the last 3 days. Associated with some mild nasal congestion, sore throat, and pleuritic type chest pain with cough. Denies fever, chills, ear pain, dysphagia, shortness of breath, wheezing, abdominal pain, nausea, vomiting, or diarrhea. Afebrile. Vital signs stable. Exam reveals an adult female in no acute distress with some mild nasal congestion, mild pharyngeal erythema without tonsillar swelling or exudate, no cervical lymphadenopathy, occasional dry, nonproductive cough, bilaterally clear breath sounds, and otherwise unremarkable exam. Considering the duration of her symptoms will treat for an acute bronchitis with a course of azithromycin, Tessalon Perles as needed for cough, recommended saline rinses and a fluticasone nasal spray for the nasal congestion, and symptomatic treatment of her sore throat. She is to follow-up with her primary care provider in 7 days if symptoms do not improve. Warning symptoms are reviewed with the patient verbalizes understanding. - Differential Dx/Diagnosis Differential Diagnosis/HQI/PQRI: Bronchitis, Influenza, Lower Resp Infection, Sinusitis Provider Diagnosis: Acute bronchitis Discharge - Sign-Out/Discharge Documenting (check all that apply): Patient Departure All imaging exams completed and their final reports reviewed: No Studies - Discharge Plan Condition: Stable Disposition: HOME Prescriptions: Azithromyxin ANGE (NF) [Z-Ange (Zithromax) 250 mg tabs #6] 2 tab PO .TODAY, THEN 1 DAILY #6 tab Benzonatate CAP* [Tessalon 100 MG CAP*] 100 mg PO TID PRN #30 cap PRN Reason: Cough Fluticasone NASAL SPRAY 50MCG* [Flonase NASAL SPRAY 50MCG*] 2 spray BOTH NARES DAILY #1 btl Patient Education Materials: Acute Bronchitis (ED) Forms: *Work Release Referrals: No Primary Care Phys,NOPCP [Primary Care Provider] - Additional Instructions: Your history and exam are consistent with an acute bronchitis. Considering the duration of your symptoms we will treat you with an antibiotic. Start azithromycin 2 tabs today then 1 tab a day for next 4 days. Use Tessalon Perles 1 cap every 8 hours as needed for cough. Drink plenty of fluids to avoid dehydration especially if you are running any fever. Use a saline rinse kit such as Neti Pot or NeilMed at least twice a day to help thin secretions and promote drainage of the sinuses. Use fluticasone (Flonase) nasal spray 2 sprays each nostril once daily. Take over the counter acetaminophen (Tylenol) or ibuprofen (Advil, Motrin) according to directions as needed for pain or fever. Use salt water gargles several times a day if you have a sore throat. You may also use Chloraseptic spray or Cepacol lonzenges according to directions which contain a numbing medication and can provide some temporary relief from your sore throat. Follow up with your primary care provider in 7 days if symptoms persist. Seek immediate medical attention in the emergency room if you have fever greater than 100.5 F despite taking acetaminophen or ibuprofen, have chest pain , difficulty breathing, are unable to swallow, or have any worsening of symptoms. - Billing Disposition and Condition Condition: STABLE Disposition: Home
== END 2018-11-19 12:54 | disposition home or self-care (01) ==
LOC: UCCORT 12:03
DX: J20.9 Acute bronchitis, unspecified (principal); Z88.1 Allergy status to other antibiotic agents; Z87.891 Personal history of nicotine dependence
CPT/HCPCS: 99212; G0463

== ENCOUNTER 2018-11-29 13:21 | Emergency (ER) | payer BC ==
[2018-11-29 14:33] VITALS: BP 119/66
--- NOTE | 2018-11-29 14:57 | UC ---
Complaint Female HPI - HPI Summary HPI Summary: pt presents with c/o heavy vaginal bleeding that began 3 days ago, pelvic and abdominal cramping. Pt has nexplanon inserted in March 2017. Pt had similar issue with previous use of nexplanon. - History Of Current Complaint Chief Complaint: UCGU Stated Complaint: PERSONAL Time Seen by Provider: 11/29/18 14:49 Hx Obtained From: Patient Hx Last Menstrual Period: NEXPLANON ?: No Onset/Duration: Sudden Onset, Lasting Days, Still Present Timing: Constant Severity Initially: Moderate Severity Currently: Moderate Pain Intensity: 3 Character: Dull, Cramping Aggravating Factor(s): Nothing Alleviating Factor(s): Nothing Associated Signs And Symptoms: Positive: Vaginal Bleeding/Discharge - Risk Factors Ectopic Risk Factor: Negative Ovarian Torsion Risk Factor: Reproductive Age - Allergies/Home Medications Allergies/Adverse Reactions: Allergies Allergy/AdvReac Type Severity Reaction Status Date / Time ceftibuten Allergy Hives Verified 11/29/18 14:32 latex Allergy Rash Verified 11/29/18 14:32 PMH/Surg Hx/FS Hx/Imm Hx Previously Healthy: Yes - Surgical History Surgical History: None - Family History Known Family History: Positive: Hypertension, Diabetes, Other - Mom has HX ovarian cysts Family History: Thyroid cancer, Dyslipidemia - Social History Occupation: Employed Full-time Lives: With Family Alcohol Use: Occasionally Substance Use Type: None Smoking Status (MU): Former Smoker Type: Cigarettes Amount Used/How Often: occasional use Have You Smoked in the Last Year: No When Did the Patient Quit Smoking/Using Tobacco: 2016 Household Exposure Type: Cigarettes - Immunization History Most Recent Influenza Vaccination: 2017 Review of Systems All Other Systems Reviewed And Are Negative: Yes Constitutional: Positive: Negative Skin: Positive: Negative Eyes: Positive: Negative ENT: Positive: Negative Respiratory: Positive: Negative Cardiovascular: Positive: Negative Gastrointestinal: Positive: Abdominal Pain Genitourinary: Positive: Vaginal/Penile Tenderness, Abnormal Bleeding Motor: Positive: Negative Neurovascular: Positive: Negative Musculoskeletal: Positive: Negative Neurological: Positive: Negative Psychological: Positive: Negative Is Patient Immunocompromised?: No Physical Exam Triage Information Reviewed: Yes Appearance: Well-Appearing Vital Signs: Initial Vital Signs Temp 97.8 F 11/29/18 14:27 Pulse 69 11/29/18 14:27 Resp 16 11/29/18 14:27 BP 119/66 11/29/18 14:27 Pulse Ox 99 11/29/18 14:27 Vital Signs Reviewed: Yes Eye Exam: Normal ENT Exam: Normal Dental Exam: Normal Neck exam: Normal Respiratory Exam: Normal Cardiovascular Exam: Normal Abdominal Exam: Other - RUQ pain, and generalized abdominal/pelvic discomfort Musculoskeletal Exam: Normal Neurological Exam: Normal Psychological Exam: Normal Skin Exam: Normal Complaint Female Dx - Differential Dx/Diagnosis Differential Diagnosis/HQI/PQRI: Sexually Transmitted Disease, Urinary Tract Infection Provider Diagnosis: Abnormal vaginal bleeding Discharge - Sign-Out/Discharge Documenting (check all that apply): Patient Departure All imaging exams completed and their final reports reviewed: No Studies - Discharge Plan Condition: Stable Disposition: HOME Patient Education Materials: Dysfunctional Uterine Bleeding (ED) Referrals: [facility] [Outside] - As Soon As Possible Lianet Crane MD [Primary Care Provider] - If Needed - Billing Disposition and Condition Condition: STABLE Disposition: Home
== END 2018-11-29 15:35 | disposition home or self-care (01) ==
LOC: UCCORT 13:21
DX: N93.9 Abnormal uterine and vaginal bleeding, unspecified (principal); Z88.1 Allergy status to other antibiotic agents; Z87.891 Personal history of nicotine dependence
CPT/HCPCS: 84702; 87491; 87591; 99212; G0463

== ENCOUNTER 2019-04-07 11:57 | Emergency (ER) | payer BC ==
[2019-04-07 12:34] VITALS: BP 119/61
--- NOTE | 2019-04-07 13:15 | UC ---
Back Pain HPI - HPI Summary HPI Summary: pt is c/o pain to the middle of her lower back for 2 days. no hx of injury. reports that she is and has a f/u appt with Dr Jolley, OB next week. LMP was 02/10/19. she denies any abdominal pain, urinary discomfort and vaginal bleeding. - History of Current Complaint Chief Complaint: UCBackPain Stated Complaint: LOWER BACK PAIN Time Seen by Provider: 04/07/19 12:58 Hx Obtained From: Patient Hx Last Menstrual Period: january Pain Intensity: 6 Aggravating Factor(s): Movement - but mostly bending Alleviating Factor(s): Rest Associated Signs And Symptoms: Negative: Fever, Weakness, Numbness, Tingling, Abdominal Pain, Flank Pain, Bladder Incontinence, Bowel Incontinence - Allergies/Home Medications Allergies/Adverse Reactions: Allergies Allergy/AdvReac Type Severity Reaction Status Date / Time ceftibuten Allergy Hives Verified 11/29/18 14:32 latex Allergy Rash Verified 11/29/18 14:32 Home Medications: Home Medications Acetaminophen [Tylenol] 650 mg PO Q4HR PRN 04/07/19 [History Confirmed 04/07/19] Ibuprofen 400 mg PO Q6HR PRN 04/07/19 [History Confirmed 04/07/19] PMH/Surg Hx/FS Hx/Imm Hx - Additional Past Medical History Additional PMH: LMP 02/10/19, currently - Surgical History Surgical History: None - Family History Known Family History: Positive: Hypertension, Diabetes, Other - Mom has HX ovarian cysts Family History: Thyroid cancer, Dyslipidemia - Social History Occupation: Employed Full-time Alcohol Use: None Substance Use Type: None Smoking Status (MU): Former Smoker Type: Cigarettes Amount Used/How Often: occasional use Have You Smoked in the Last Year: No When Did the Patient Quit Smoking/Using Tobacco: 2016 Household Exposure Type: Cigarettes - Immunization History Most Recent Influenza Vaccination: 2017 Review of Systems All Other Systems Reviewed And Are Negative: Yes Constitutional: Negative: Fever Gastrointestinal: Negative: Abdominal Pain Genitourinary: Negative: Dysuria, Hematuria, Frequency, Urgency, Vaginal/Penile Discharge, Abnormal Bleeding Motor: Negative: Decreased ROM, Weakness Musculoskeletal: Positive: Other: - Low back pain Neurological: Negative: Weakness, Paresthesia, Numbness Physical Exam Triage Information Reviewed: Yes Appearance: Well-Appearing Vital Signs: Initial Vital Signs Temp 97.3 F 04/07/19 12:28 Pulse 73 04/07/19 12:28 Resp 16 04/07/19 12:28 BP 119/61 04/07/19 12:28 Pulse Ox 96 04/07/19 12:28 Vital Signs Reviewed: Yes Eyes: Positive: Conjunctiva Clear ENT: Positive: Pharynx normal. Negative: Nasal drainage Neck: Positive: Supple, Nontender, No Lymphadenopathy, Other: - c-spine is non tender Respiratory: Positive: Lungs clear, Normal breath sounds, No respiratory distress Cardiovascular: Positive: RRR, No Murmur Abdomen Description: Positive: Nontender, No Organomegaly, Soft. Negative: CVA Tenderness (R), CVA Tenderness (L), Distended, Guarding, Pulsatile Mass Bowel Sounds: Positive: Present Musculoskeletal: Positive: Other: - Back: no gross deformity, swelling. spine is non tender. tender over paraspinal muscles in lumbar region only. Active ROM intact throughout but pt c/opain with flexion in lumbar region. 5/5 strength, 2 + reflexes and sensation intact x4. No saddle anesthesia. Steady gait. Neurological: Positive: Alert Psychological: Positive: Age Appropriate Behavior Skin Exam: Normal Skin: Negative: Rashes Back Pain Course/Dx - Course Course Of Treatment: pt advised to take only Tylenol due to . will refer to PT as well. she agrees to go to the ER for any changes or worsening and has 1OB appt next week. - Differential Dx/Diagnosis Differential Diagnosis/HQI/PQRI: Other - no concern for infection, acute abdomen including ectopic or cauda equina. no concern for AA. Provider Diagnosis: Low back pain Discharge - Sign-Out/Discharge Documenting (check all that apply): Patient Departure All imaging exams completed and their final reports reviewed: No Studies - Discharge Plan Condition: Stable Disposition: HOME Patient Education Materials: Acute Low Back Pain (ED) Forms: *Work Release Referrals: iRley Jolley MD [Medical Doctor] - Additional Instructions: FOLLOW UP WITH DR JOLLEY SCHEDULED FOR NEXT WEEK. GO TO THE ER FOR ANY WORSENING. TAKE TYLENOL PER LABEL NEEDED FOR PAIN. AVOID ALL OTHER MEDICATIONS DURING EXCEPT FOR THOSE APPROVED BY DR JOLLEY OR ANOTHER PROVIDER. PHYSICAL THERAPY REFERRAL GIVEN. - Billing Disposition and Condition Condition: STABLE Disposition: Home
== END 2019-04-07 13:24 | disposition home or self-care (01) ==
LOC: UCCORT 11:57
DX: O99.89 Other specified diseases and conditions complicating pregnancy, childbirth and the puerperium (principal); M54.5 Low back pain; Z88.8 Allergy status to other drugs, medicaments and biological substances; Z91.040 Latex allergy status; Z87.891 Personal history of nicotine dependence
CPT/HCPCS: 81003; 84702; 99211; G0463

== ENCOUNTER 2020-02-02 09:06 | Emergency (ER) | payer SELFPAY ==
[2020-02-02 09:52] VITALS: BP 130/82
--- NOTE | 2020-02-02 10:12 | UC ---
Throat Pain/Nasal Sal HPI - HPI Summary HPI Summary: 25-year-old female with runny nose and head congestion over the past 2 days. She states she had a sore throat the first day but that has resolved. She went to work today and was sent home because she has cold symptoms and the employer mandated she be checked today. She denies fever and no recent travel. - History of Current Complaint Chief Complaint: UCGeneralIllness Stated Complaint: SINUSES,COUGH,THROAT COMPLAINT Time Seen by Provider: 02/02/20 10:11 Hx Obtained From: Patient Hx Last Menstrual Period: end of january ?: No Onset/Duration: Gradual Onset Severity: Mild Pain Intensity: 0 Cough: Nonproductive - Allergies/Home Medications Allergies/Adverse Reactions: Allergies Allergy/AdvReac Type Severity Reaction Status Date / Time ceftibuten Allergy Hives Verified 02/02/20 09:53 latex Allergy Rash Verified 02/02/20 09:53 Home Medications: Home Medications Loratadine [Claritin 10 MG CAP] 10 mg PO DAILY 02/02/20 [History Confirmed 02/01] guaiFENesin ER TAB [Mucinex*] 600 mg PO BID 02/02/20 [History Confirmed 02/02/20 ] PMH/Surg Hx/FS Hx/Imm Hx Previously Healthy: Yes - Surgical History Surgical History: None - Family History Known Family History: Positive: Hypertension, Diabetes, Other - Mom has HX ovarian cysts Family History: Thyroid cancer, Dyslipidemia - Social History Lives: With Family Alcohol Use: None Substance Use Type: None Smoking Status (MU): Former Smoker Type: Cigarettes Amount Used/How Often: occasional use Have You Smoked in the Last Year: No When Did the Patient Quit Smoking/Using Tobacco: 2016 Household Exposure Type: Cigarettes - Immunization History Most Recent Influenza Vaccination: 2017 Review of Systems All Other Systems Reviewed And Are Negative: Yes ENT: Positive: Sore Throat - Patient had a sore throat the first day but no fever. The sore throat has resolved, Nasal Discharge Is Patient Immunocompromised?: No Physical Exam Triage Information Reviewed: Yes Appearance: Well-Appearing, No Pain Distress, Well-Nourished Vital Signs: Initial Vital Signs Temp 98.6 F 02/02/20 09:50 Pulse 89 02/02/20 09:50 Resp 16 02/02/20 09:50 BP 130/82 02/02/20 09:50 Pulse Ox 100 03/16/20 09:50 Vital Signs Reviewed: Yes Eyes: Positive: Conjunctiva Clear ENT: Positive: Pharyngeal erythema, Nasal congestion, Nasal drainage - Clear nasal coryza, TMs normal, Uvula midline Neck: Positive: Supple, Nontender, No Lymphadenopathy Respiratory: Positive: Lungs clear, Normal breath sounds, No respiratory distress, No accessory muscle use Cardiovascular: Positive: RRR, No Murmur, Pulses Normal, Brisk Capillary Refill Musculoskeletal Exam: Normal Neurological Exam: Normal Psychological Exam: Normal Skin Exam: Normal Throat Pain/Nasal Course/Dx - Course Course Of Treatment: Patient is comfortable here. Rapid strep test was negative. 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 - Differential Dx/Diagnosis Provider Diagnosis: URI (upper respiratory infection) Discharge ED - Sign-Out/Discharge Documenting (check all that apply): Patient Departure All imaging exams completed and their final reports reviewed: No Studies - Discharge Plan Condition: Good Disposition: HOME Patient Education Materials: Upper Respiratory Infection (ED) Forms: *Work Release Referrals: [facility] [Outside] No Primary Care Phys,NOPCP [Primary Care Provider] - Additional Instructions: Increase fluids, [id number] cold medicines as directed. Follow-up with your primary care provider or the [facility] if no improvement in 3 or 4 days. - Billing Disposition and Condition Condition: GOOD Disposition: Home
== END 2020-02-02 10:35 | disposition home or self-care (01) ==
LOC: UCCORT 09:06
DX: J06.9 Acute upper respiratory infection, unspecified (principal); Z91.040 Latex allergy status; Z88.1 Allergy status to other antibiotic agents; Z87.891 Personal history of nicotine dependence
CPT/HCPCS: 87651; 99211; G0463